=== PATIENT | female | born 1945 | race Caucasian/White ===

== ENCOUNTER 2019-10-16 10:33 | Inpatient (IN) | payer MEDICARE, OTHER ==
[~2019-10-16] VITALS: Ht 165.1 cm; Wt 120.0 kg
[2019-10-16 11:26] LABS: Basophils # (auto) 0 uL; Basophils % (auto) 0.1 % (0.0-2.0); Eosinophils # (auto) 0.1 uL; Eosinophils % (auto) 0.9 % (0.0-7.0); Hematocrit 32.2 % (36.0-46.0); Hemoglobin 10.3 g/dL (12.2-16.2); Lymphocytes # (auto) 1.4 uL; Lymphocytes % (auto) 17.6 % (10.0-50.0); Mean Corpuscular Hemoglobin 30.6 pg (28.0-32.0); Mean Corpuscular Hgb Conc. 31.9 g/dL (32.0-36.0); Mean Corpuscular Volume 95.9 fL (80.0-100.0); Monocytes # (auto) 0.6 uL; Monocytes % (auto) 7.5 % (0.0-12.0); Neutrophils % (auto) 73.9 % (37.0-80.0); Platelet Count (auto) 270 10^3/uL (140-450); Red Blood Cells 3.36 10^6/uL (4.0-5.20); Red Cell Distribution Width 15.2 % (11.8-14.3); White Blood Cell 8.1 10^3/uL (4.4-10.8)
[2019-10-16 11:37] LABS: Albumin 2.9 g/dL (3.4-5.0); Anion Gap 8 (5-15); Blood Urea Nitrogen 27 mg/dL (7-18); Calcium 9.1 mg/dL (8.5-10.1); Carbon Dioxide 35 mmol/L (21-32); Chloride 95 mmol/L (98-107); Glucose 274 mg/dL (74-106); Potassium 3.8 mmol/L (3.5-5.1); Sodium 138 mmol/L (136-145)
[2019-10-16 11:40] LABS: Lactic Acid w/Reflex 4.6 mmol/L (0.4-2.0)
[2019-10-16 11:42] LABS: Alanine Aminotransferase 17 U/L (13-56); Alkaline Phosphatase 73 U/L (45-117); Aspartate Aminotransferase 14 U/L (15-37); BUN/Creatinine Ratio 20.9; Bilirubin, Total 0.3 mg/dL (0.2-1.0); GFR African American 52 mL/min; GFR Non-African American 43 mL/min; Total Protein 7.8 g/dL (6.4-8.2)
[2019-10-16 11:45] LABS: INR 1.01 (0.9-1.15); Partial Thromboplastin Time 24.7 sec (23.64-32.05)
[2019-10-16] MEDS ORDERED: ONDANSETRON HCL 4 MG/2 ML VIAL IV PRN (15:30)
[2019-10-16] MEDS ORDERED: NITROGLYCERIN 0.4 MG SL TAB SL PRN (15:30)
[2019-10-16] MEDS ORDERED: MORPHINE SULF INJ 2 MG/ML SYRINGE 1ML IV PRN (15:30)
[2019-10-16] MEDS ORDERED: DEXTROSE (50%) 50ML SYRG IV PRN (15:30)
[2019-10-16] MEDS ORDERED: DOCUSATE SOD 100 MG CAP PO PRN (15:30)
[2019-10-16] MEDS ORDERED: cefTRIAXone 1GM/50ML D5W 50 ML IV ONE (15:30)
[2019-10-16] MEDS ORDERED: SODIUM CHLORIDE 0.9% 1,000 ML IV ONE (15:30)
[2019-10-16] MEDS ORDERED: HYDROcodone-ACET 5/325MG TAB PO PRN (15:30)
[2019-10-16] MEDS ORDERED: ENALAPRILAT 1.25 MG/ML-1ML VIAL IV PRN (15:30)
[2019-10-16 15:47] LABS: Cholesterol 120 mg/dL (< 200); Triglycerides 235 mg/dL (< 150)
[2019-10-16 15:49] LABS: HDL Cholesterol 43 mg/dL (40-59); LDL Cholesterol 61 mg/dL (< 100)
[2019-10-16 16:25] LABS: Urine Bacteria MANY /hpf (None Seen); Urine Blood Negative /uL (Negative); Urine Hyaline Cast FEW /lpf (0 - 2); Urine Specific Gravity 1.009 (1.001-1.035); Urine WBC 44 /hpf (0 - 5)
[2019-10-16 16:32] VITALS: BP 122/57
[2019-10-16] MEDS: ACCU-CHEK COMFORT CURVE STRIP VI SCH ×2 (17:13→22:25)
[2019-10-16] MEDS: InsuLIN REG 1unit/0.01ml Soln (100units/ml) SC SCH ×2 (17:14→22:24)
[2019-10-16] MEDS: IPRATROPIUM BROM 0.5 MG/2.5ML INH SOL NEB PRN (19:30)
[2019-10-16] MEDS: ALBUTEROL SULF 2.5 MG/0.5ML(0.5%) NEB SOLN NEB PRN (19:30)
[2019-10-16 22:00] VITALS: BP 116/69
[2019-10-16] MEDS: CLINDAMYCIN 300MG IV 50 ML IV SCH (22:09)
[2019-10-16] MEDS: NYSTATIN TOPICAL POWDER 15GM TOP SCH (22:25)
[2019-10-17 05:00] VITALS: BP 135/65
[2019-10-17 06:09] LABS: Albumin 2.4 g/dL (3.4-5.0); Potassium 3.8 mmol/L (3.5-5.1)
[2019-10-17 06:14] LABS: BUN/Creatinine Ratio 22.3; Bilirubin, Total 0.3 mg/dL (0.2-1.0); Total Protein 6.8 g/dL (6.4-8.2)
[2019-10-17] MEDS: ACCU-CHEK COMFORT CURVE STRIP VI SCH ×4 (06:31→22:05)
[2019-10-17] MEDS: CLINDAMYCIN 300MG IV 50 ML IV SCH ×3 (06:31→22:05)
[2019-10-17] MEDS: InsuLIN REG 1unit/0.01ml Soln (100units/ml) SC SCH ×4 (06:32→22:06)
[2019-10-17 09:00] VITALS: BP 129/54
[2019-10-17] MEDS ORDERED: cefTRIAXone 1GM/50ML D5W 50 ML IV SCH (09:00)
[2019-10-17] MEDS: ENOXAPARIN SOD 40 MG/0.4 ML SYRINGE SC SCH (10:28)
[2019-10-17] MEDS: FAMOTIDINE 20 MG TAB PO SCH (10:29)
[2019-10-17] MEDS: NYSTATIN TOPICAL POWDER 15GM TOP SCH ×2 (10:29→22:05)
[2019-10-17] MEDS: ACETAMINOPHEN 500 MG TAB PO PRN ×2 (10:39→22:31)
[2019-10-17 13:00] VITALS: BP 140/83
[2019-10-17 17:00] VITALS: BP 142/84
[2019-10-17] MEDS: BUMETANIDE 1 MG TAB PO SCH (17:46)
[2019-10-17] MEDS: IPRATROPIUM BROM 0.5 MG/2.5ML INH SOL NEB PRN (19:38)
[2019-10-17] MEDS: ALBUTEROL SULF 2.5 MG/0.5ML(0.5%) NEB SOLN NEB PRN (19:38)
[2019-10-17 21:22] VITALS: BP 139/71
[2019-10-17] MEDS: INSULIN LANTUS (GLARGINE) 1 /0.01ml (100units/ml) SC SCH (22:06)
[2019-10-18 05:03] VITALS: BP 135/87
[2019-10-18] MEDS: CLINDAMYCIN 300MG IV 50 ML IV SCH (06:16)
[2019-10-18] MEDS: ACCU-CHEK COMFORT CURVE STRIP VI SCH ×4 (06:17→21:39)
[2019-10-18] MEDS: BUMETANIDE 1 MG TAB PO SCH (06:17)
[2019-10-18] MEDS: InsuLIN REG 1unit/0.01ml Soln (100units/ml) SC SCH ×4 (06:24→22:00)
[2019-10-18] MEDS ORDERED: ANAS1TAB7 PO (06:58)
[2019-10-18] MEDS ORDERED: METF-370 PO (06:58)
[2019-10-18] MEDS ORDERED: ALLO100T PO (06:58)
[2019-10-18] MEDS ORDERED: INSUINJ37 SC (06:58)
[2019-10-18] MEDS ORDERED: ATEN50TA PO (06:58)
[2019-10-18] MEDS ORDERED: POTA10TA79 PO (06:58)
[2019-10-18] MEDS ORDERED: LOSA-39 PO (06:58)
[2019-10-18] MEDS ORDERED: GLIP10TA9 PO (06:58)
[2019-10-18] MEDS ORDERED: BUME1TAB26 PO (06:58)
[2019-10-18] MEDS ORDERED: ATOR10TA52 PO (06:58)
[2019-10-18] MEDS ORDERED: GABA100C9 PO (06:58)
[2019-10-18] MEDS: IPRATROPIUM BROM 0.5 MG/2.5ML INH SOL NEB PRN (07:22)
[2019-10-18] MEDS: ALBUTEROL SULF 2.5 MG/0.5ML(0.5%) NEB SOLN NEB PRN (07:22)
[2019-10-18 09:00] VITALS: BP 140/79
[2019-10-18] MEDS: FAMOTIDINE 20 MG TAB PO SCH (10:29)
[2019-10-18] MEDS: ENOXAPARIN SOD 40 MG/0.4 ML SYRINGE SC SCH (10:29)
[2019-10-18] MEDS: NYSTATIN TOPICAL POWDER 15GM TOP SCH ×2 (10:42→21:39)
[2019-10-18] MEDS ORDERED: VANCOMYCIN PER PHARMACY 0 MG IV SCH (10:45)
[2019-10-18 10:55] LABS: Potassium 3.8 mmol/L (3.5-5.1)
[2019-10-18 10:59] LABS: BUN/Creatinine Ratio 14.2; Calcium 8.9 mg/dL (8.5-10.1)
[2019-10-18] MEDS ORDERED: VANCOMYCIN 1GM/250ML 250 ML IV SCH (12:00)
[2019-10-18] MEDS ORDERED: PIPERACILLIN-TAZO 4.5GM 100 ML IV SCH (14:00)
[2019-10-18] MEDS: VANCOMYCIN 1GM/250ML 250 ML IV SCH (14:37)
[2019-10-18 17:00] VITALS: BP 147/100
[2019-10-18] MEDS: PIPERACILLIN-TAZO 4.5GM 100 ML IV SCH (17:21)
[2019-10-18] MEDS: metFORMIN HYDROCHLORIDE 500 MG TAB PO SCH (17:27)
[2019-10-18] MEDS: glipiZIDE 5 MG TAB PO SCH (17:27)
[2019-10-18] MEDS: POTASSIUM CHL 20 Meq TABLET PO SCH (21:38)
[2019-10-18 22:00] VITALS: BP 150/63
[2019-10-18] MEDS: INSULIN LANTUS (GLARGINE) 1 /0.01ml (100units/ml) SC SCH (22:00)
[2019-10-18] MEDS: ACETAMINOPHEN 500 MG TAB PO PRN (23:16)
[2019-10-19] MEDS: PIPERACILLIN-TAZO 4.5GM 100 ML IV SCH ×3 (01:00→16:59)
[2019-10-19 04:50] VITALS: BP 136/94
[2019-10-19 05:13] VITALS: BP 136/73
[2019-10-19] MEDS ORDERED: LABETALOL HCL 5 MG/ML 4ML SYRINGE IV ONE (05:15)
[2019-10-19] MEDS ORDERED: AMIODARONE HCL 150 MG in D5W 5% 100 ML IV ONE (05:45)
[2019-10-19 05:53] LABS: Basophils # (auto) 0.1 uL; Basophils % (auto) 0.8 % (0.0-2.0); Eosinophils # (auto) 0.2 uL; Eosinophils % (auto) 2.8 % (0.0-7.0); Hematocrit 30.4 % (36.0-46.0); Lymphocytes # (auto) 1.8 uL; Lymphocytes % (auto) 20.9 % (10.0-50.0); Mean Corpuscular Hemoglobin 31.5 pg (28.0-32.0); Mean Corpuscular Volume 95.4 fL (80.0-100.0); Monocytes # (auto) 0.7 uL; Monocytes % (auto) 7.5 % (0.0-12.0); Nucleated Red Blood Cells % 0.2 %; Platelet Count (auto) 256 10^3/uL (140-450); Red Blood Cells 3.19 10^6/uL (4.0-5.20); Red Cell Distribution Width 15.2 % (11.8-14.3); White Blood Cell 8.8 10^3/uL (4.4-10.8)
[2019-10-19] MEDS ORDERED: AMIODARONE HCL 900 MG in DEXTROSE 500 ML IV SCH ×2 (05:55→11:55)
[2019-10-19] MEDS: VANCOMYCIN 1GM/250ML 250 ML IV SCH ×2 (05:58→23:03)
[2019-10-19] MEDS: glipiZIDE 5 MG TAB PO SCH ×2 (05:58→17:40)
[2019-10-19] MEDS: InsuLIN REG 1unit/0.01ml Soln (100units/ml) SC SCH ×4 (05:59→22:58)
[2019-10-19] MEDS: ACCU-CHEK COMFORT CURVE STRIP VI SCH ×4 (05:59→22:57)
[2019-10-19] MEDS ORDERED: AMIODARONE HCL (50 MG/ ML) 3 ML VIAL IV ONE (06:02)
[2019-10-19] MEDS: ALBUTEROL SULF 2.5 MG/0.5ML(0.5%) NEB SOLN NEB PRN (06:05)
[2019-10-19] MEDS: IPRATROPIUM BROM 0.5 MG/2.5ML INH SOL NEB PRN (06:05)
[2019-10-19 06:14] LABS: Chloride 98 mmol/L (98-107); Sodium 138 mmol/L (136-145)
[2019-10-19 06:22] LABS: Alanine Aminotransferase 19 U/L (13-56); Albumin 2.6 g/dL (3.4-5.0); Alkaline Phosphatase 58 U/L (45-117); Anion Gap 5 (5-15); Aspartate Aminotransferase 27 U/L (15-37); BUN/Creatinine Ratio 13.6; Bilirubin, Total 0.3 mg/dL (0.2-1.0); Blood Urea Nitrogen 15 mg/dL (7-18); Calcium 8.7 mg/dL (8.5-10.1); Carbon Dioxide 35 mmol/L (21-32); GFR African American 63 mL/min; GFR Non-African American 52 mL/min; Glucose 197 mg/dL (74-106); Magnesium 1.9 mg/dL (1.6-2.6); Total Protein 7.6 g/dL (6.4-8.2)
[2019-10-19] MEDS: metFORMIN HYDROCHLORIDE 500 MG TAB PO SCH ×2 (07:44→17:41)
[2019-10-19 08:24] VITALS: BP 124/59
[2019-10-19] MEDS: FAMOTIDINE 20 MG TAB PO SCH (09:53)
[2019-10-19] MEDS: POTASSIUM CHL 20 Meq TABLET PO SCH ×2 (09:53→22:57)
[2019-10-19] MEDS: BUMETANIDE 2.5mg/10ml (0.25 mg/ml) INJ IV SCH (09:56)
[2019-10-19] MEDS: ATENOLOL 50 MG TAB PO SCH (10:00)
[2019-10-19] MEDS: ENOXAPARIN SOD 120 MG/0.8 ML SYRINGE SC SCH ×2 (10:00→22:57)
[2019-10-19 11:55] VITALS: BP 103/53
[2019-10-19] MEDS: NYSTATIN TOPICAL POWDER 15GM TOP SCH ×2 (16:10→22:57)
[2019-10-19 20:00] VITALS: BP 142/62
[2019-10-19 22:57] VITALS: BP 142/62
[2019-10-19] MEDS: INSULIN LANTUS (GLARGINE) 1 /0.01ml (100units/ml) SC SCH (22:58)
[2019-10-20] VITALS: BP 144/57
[2019-10-20] MEDS: PIPERACILLIN-TAZO 4.5GM 100 ML IV SCH ×3 (01:13→17:10)
[2019-10-20 04:00] VITALS: BP 143/68
[2019-10-20 05:49] LABS: Basophils # (auto) 0 uL; Basophils % (auto) 0.3 % (0.0-2.0); Eosinophils # (auto) 0.3 uL; Eosinophils % (auto) 3.8 % (0.0-7.0); Hematocrit 28.1 % (36.0-46.0); Hemoglobin 9.3 g/dL (12.2-16.2); Lymphocytes # (auto) 1.5 uL; Lymphocytes % (auto) 20.5 % (10.0-50.0); Mean Corpuscular Hemoglobin 31.8 pg (28.0-32.0); Mean Corpuscular Hgb Conc. 33.2 g/dL (32.0-36.0); Mean Corpuscular Volume 95.9 fL (80.0-100.0); Monocytes # (auto) 0.5 uL; Monocytes % (auto) 7.6 % (0.0-12.0); Neutrophils # (auto) 4.8 uL; Neutrophils % (auto) 67.8 % (37.0-80.0); Platelet Count (auto) 244 10^3/uL (140-450); Red Blood Cells 2.93 10^6/uL (4.0-5.20); Red Cell Distribution Width 15.1 % (11.8-14.3); White Blood Cell 7.1 10^3/uL (4.4-10.8)
[2019-10-20 06:06] LABS: Albumin 2.5 g/dL (3.4-5.0); BUN/Creatinine Ratio 13.4; Calcium 8.3 mg/dL (8.5-10.1); Potassium 3.7 mmol/L (3.5-5.1)
[2019-10-20] MEDS: ACCU-CHEK COMFORT CURVE STRIP VI SCH ×4 (06:07→21:10)
[2019-10-20 06:08] LABS: Bilirubin, Total 0.3 mg/dL (0.2-1.0); Total Protein 7.1 g/dL (6.4-8.2)
[2019-10-20] MEDS: glipiZIDE 5 MG TAB PO SCH (06:08)
[2019-10-20] MEDS: InsuLIN REG 1unit/0.01ml Soln (100units/ml) SC SCH ×4 (06:08→21:10)
[2019-10-20 07:40] VITALS: BP 120/64
[2019-10-20] MEDS ORDERED: DEXTROSE (50%) 50ML SYRG IV PRN (08:45)
[2019-10-20] MEDS: NYSTATIN TOPICAL POWDER 15GM TOP SCH ×3 (10:00→21:09)
[2019-10-20] MEDS: ATENOLOL 50 MG TAB PO SCH (10:00)
[2019-10-20] MEDS: BUMETANIDE 2.5mg/10ml (0.25 mg/ml) INJ IV SCH (10:29)
[2019-10-20] MEDS: POTASSIUM CHL 20 Meq TABLET PO SCH ×2 (10:29→21:09)
[2019-10-20] MEDS: FAMOTIDINE 20 MG TAB PO SCH (10:29)
[2019-10-20] MEDS: ENOXAPARIN SOD 120 MG/0.8 ML SYRINGE SC SCH ×2 (10:30→21:10)
[2019-10-20 11:50] VITALS: BP 107/85
[2019-10-20 15:35] VITALS: BP 118/72
[2019-10-20] MEDS: VANCOMYCIN 1GM/250ML 250 ML IV SCH (15:46)
[2019-10-20] MEDS ORDERED: ATENOLOL 50 MG TAB PO SCH (16:45)
[2019-10-20] MEDS: ALLOPURINOL 100 MG TAB PO SCH (17:05)
[2019-10-20] MEDS: GABAPENTIN 100 MG CAP PO SCH ×2 (17:05→21:09)
[2019-10-20 20:00] VITALS: BP 127/64
[2019-10-20] MEDS: ATORVASTATIN 20 MG TAB PO SCH (21:09)
[2019-10-20] MEDS: INSULIN LANTUS (GLARGINE) 1 /0.01ml (100units/ml) SC SCH (21:10)
[2019-10-21] VITALS: BP 138/70
[2019-10-21] MEDS: PIPERACILLIN-TAZO 4.5GM 100 ML IV SCH ×3 (01:29→17:35)
[2019-10-21 05:00] VITALS: BP 155/76
[2019-10-21] MEDS: GABAPENTIN 100 MG CAP PO SCH ×3 (06:00→21:18)
[2019-10-21] MEDS: InsuLIN REG 1unit/0.01ml Soln (100units/ml) SC SCH ×4 (06:57→21:20)
[2019-10-21] MEDS: ACCU-CHEK COMFORT CURVE STRIP VI SCH ×4 (07:09→21:18)
[2019-10-21] MEDS: VANCOMYCIN 1GM/250ML 250 ML IV SCH ×2 (07:09→23:02)
[2019-10-21 07:58] LABS: Basophils # (auto) 0.1 uL; Basophils % (auto) 0.8 % (0.0-2.0); Eosinophils # (auto) 0.3 uL; Eosinophils % (auto) 4.9 % (0.0-7.0); Hematocrit 28.5 % (36.0-46.0); Hemoglobin 9.3 g/dL (12.2-16.2); Lymphocytes # (auto) 1.3 uL; Lymphocytes % (auto) 21.2 % (10.0-50.0); Mean Corpuscular Hemoglobin 31.5 pg (28.0-32.0); Mean Corpuscular Hgb Conc. 32.6 g/dL (32.0-36.0); Mean Corpuscular Volume 96.6 fL (80.0-100.0); Monocytes # (auto) 0.5 uL; Monocytes % (auto) 8.4 % (0.0-12.0); Neutrophils % (auto) 64.7 % (37.0-80.0); Nucleated Red Blood Cells % 0.1 %; Platelet Count (auto) 248 10^3/uL (140-450); Red Blood Cells 2.95 10^6/uL (4.0-5.20); Red Cell Distribution Width 15.3 % (11.8-14.3); White Blood Cell 6.2 10^3/uL (4.4-10.8)
[2019-10-21 08:31] LABS: Albumin 2.4 g/dL (3.4-5.0); Calcium 8.1 mg/dL (8.5-10.1); Potassium 4.2 mmol/L (3.5-5.1)
[2019-10-21 08:34] LABS: Bilirubin, Total 0.3 mg/dL (0.2-1.0); Total Protein 7.1 g/dL (6.4-8.2)
[2019-10-21] MEDS: NYSTATIN TOPICAL POWDER 15GM TOP SCH ×2 (09:43→21:19)
[2019-10-21] MEDS: POTASSIUM CHL 20 Meq TABLET PO SCH ×2 (09:44→21:18)
[2019-10-21] MEDS: FAMOTIDINE 20 MG TAB PO SCH (09:44)
[2019-10-21] MEDS: BUMETANIDE 2.5mg/10ml (0.25 mg/ml) INJ IV SCH (09:44)
[2019-10-21] MEDS: ALLOPURINOL 100 MG TAB PO SCH (09:44)
[2019-10-21] MEDS: ENOXAPARIN SOD 120 MG/0.8 ML SYRINGE SC SCH ×2 (09:44→21:18)
[2019-10-21 09:45] VITALS: BP 147/70
[2019-10-21] MEDS: ATENOLOL 50 MG TAB PO SCH (09:45)
[2019-10-21 13:02] VITALS: BP 149/50
[2019-10-21 17:00] VITALS: BP 155/65
[2019-10-21 21:00] VITALS: BP 145/63
[2019-10-21] MEDS: ATORVASTATIN 20 MG TAB PO SCH (21:18)
[2019-10-21] MEDS: INSULIN LANTUS (GLARGINE) 1 /0.01ml (100units/ml) SC SCH (21:19)
[2019-10-22] MEDS ORDERED: PIPERACILLIN-TAZO 4.5GM 100 ML IV ONE (01:05)
[2019-10-22] MEDS: PIPERACILLIN-TAZO 4.5GM 100 ML IV SCH ×3 (01:09→17:44)
[2019-10-22 04:30] VITALS: BP 139/69
[2019-10-22] MEDS: GABAPENTIN 100 MG CAP PO SCH ×3 (05:31→21:31)
[2019-10-22] MEDS: InsuLIN REG 1unit/0.01ml Soln (100units/ml) SC SCH ×4 (06:30→21:34)
[2019-10-22] MEDS: ACCU-CHEK COMFORT CURVE STRIP VI SCH ×4 (06:30→21:35)
[2019-10-22 08:24] VITALS: BP 106/67
[2019-10-22 08:45] LABS: BUN/Creatinine Ratio 10.9; Calcium 8.8 mg/dL (8.5-10.1); Potassium 4.8 mmol/L (3.5-5.1)
[2019-10-22] MEDS: FAMOTIDINE 20 MG TAB PO SCH (09:25)
[2019-10-22] MEDS: BUMETANIDE 2.5mg/10ml (0.25 mg/ml) INJ IV SCH (09:25)
[2019-10-22] MEDS: ATENOLOL 50 MG TAB PO SCH (09:25)
[2019-10-22] MEDS: ALLOPURINOL 100 MG TAB PO SCH (09:25)
[2019-10-22] MEDS: POTASSIUM CHL 20 Meq TABLET PO SCH ×2 (09:25→21:31)
[2019-10-22] MEDS: NYSTATIN TOPICAL POWDER 15GM TOP SCH ×2 (09:26→21:42)
[2019-10-22] MEDS: ENOXAPARIN SOD 120 MG/0.8 ML SYRINGE SC SCH (09:26)
[2019-10-22] MEDS: INSULIN LANTUS (GLARGINE) 1 /0.01ml (100units/ml) SC SCH ×2 (11:55→21:35)
[2019-10-22 13:00] VITALS: BP 147/69
[2019-10-22] MEDS: VANCOMYCIN 1GM/250ML 250 ML IV SCH (14:50)
[2019-10-22 17:24] VITALS: BP 125/55
[2019-10-22 21:00] VITALS: BP 130/69
[2019-10-22] MEDS: ATORVASTATIN 20 MG TAB PO SCH (21:31)
[2019-10-23] MEDS: PIPERACILLIN-TAZO 4.5GM 100 ML IV SCH ×3 (00:51→17:58)
[2019-10-23 05:00] VITALS: BP 143/82
[2019-10-23 06:01] LABS: Calcium 9.1 mg/dL (8.5-10.1); Potassium 4.2 mmol/L (3.5-5.1)
[2019-10-23 06:04] LABS: BUN/Creatinine Ratio 10.7
[2019-10-23] MEDS: VANCOMYCIN 1GM/250ML 250 ML IV SCH ×2 (06:17→14:25)
[2019-10-23] MEDS: InsuLIN REG 1unit/0.01ml Soln (100units/ml) SC SCH ×4 (06:31→22:02)
[2019-10-23] MEDS: ACCU-CHEK COMFORT CURVE STRIP VI SCH ×4 (06:31→21:54)
[2019-10-23] MEDS: GABAPENTIN 100 MG CAP PO SCH ×3 (06:31→21:54)
[2019-10-23] MEDS ORDERED: LIDOCAINE 2%HCL (LOCAL ANESTH.) INJ 20ML MDV ONE (08:59)
[2019-10-23] MEDS ORDERED: IODIXANOL 320MG/ML 100ML BTL IV ONE (08:59)
[2019-10-23] MEDS ORDERED: ANGIOMAX 250 MG VIAL IV ONE (09:13)
[2019-10-23] MEDS ORDERED: MIDAZOLAM HCL 1MG/1ML-2 ML VIAL ONE (09:14)
[2019-10-23] MEDS ORDERED: VERAPAMIL 2.5MG/ML INJ 2ML VIAL IV ONE (09:14)
[2019-10-23] MEDS ORDERED: fentaNYL CITRATE 100 MCG/2 ML VL ONE (09:14)
[2019-10-23] MEDS ORDERED: SODIUM CHL 0.9% 0 ML ONE (09:14)
[2019-10-23] MEDS ORDERED: HEPARIN SODIUM (PORCINE) 5000 UNITS/ML 1ML VIAL ONE (09:49)
[2019-10-23] MEDS: ATENOLOL 50 MG TAB PO SCH (10:00)
[2019-10-23] MEDS: BUMETANIDE 2.5mg/10ml (0.25 mg/ml) INJ IV SCH (11:10)
[2019-10-23] MEDS: POTASSIUM CHL 20 Meq TABLET PO SCH ×2 (11:11→21:54)
[2019-10-23] MEDS: FAMOTIDINE 20 MG TAB PO SCH (11:13)
[2019-10-23] MEDS: ALLOPURINOL 100 MG TAB PO SCH (11:13)
[2019-10-23] MEDS: NYSTATIN TOPICAL POWDER 15GM TOP SCH ×2 (11:14→21:56)
[2019-10-23 13:00] VITALS: BP 136/52
[2019-10-23 17:02] VITALS: BP 150/70
[2019-10-23] MEDS: ATORVASTATIN 20 MG TAB PO SCH (21:54)
[2019-10-23 22:00] VITALS: BP 138/67
[2019-10-23] MEDS: INSULIN LANTUS (GLARGINE) 1 /0.01ml (100units/ml) SC SCH (22:02)
[2019-10-24] MEDS: PIPERACILLIN-TAZO 4.5GM 100 ML IV SCH ×2 (01:46→11:09)
[2019-10-24 05:00] VITALS: BP 151/67
[2019-10-24 05:44] LABS: Basophils # (auto) 0 uL; Basophils % (auto) 0.4 % (0.0-2.0); Eosinophils # (auto) 0.2 uL; Hematocrit 28.1 % (36.0-46.0); Hemoglobin 9.2 g/dL (12.2-16.2); Lymphocytes # (auto) 1.1 uL; Lymphocytes % (auto) 18.1 % (10.0-50.0); Mean Corpuscular Hemoglobin 31.9 pg (28.0-32.0); Mean Corpuscular Hgb Conc. 32.5 g/dL (32.0-36.0); Mean Corpuscular Volume 98.1 fL (80.0-100.0); Monocytes # (auto) 0.7 uL; Monocytes % (auto) 10.6 % (0.0-12.0); Neutrophils # (auto) 4.2 uL; Neutrophils % (auto) 67.9 % (37.0-80.0); Platelet Count (auto) 248 10^3/uL (140-450); Red Blood Cells 2.87 10^6/uL (4.0-5.20); Red Cell Distribution Width 15.4 % (11.8-14.3); White Blood Cell 6.2 10^3/uL (4.4-10.8)
[2019-10-24 06:06] LABS: Potassium 4.4 mmol/L (3.5-5.1)
[2019-10-24 06:18] LABS: Albumin 2.5 g/dL (3.4-5.0); BUN/Creatinine Ratio 11.9; Bilirubin, Total 0.2 mg/dL (0.2-1.0); Calcium 8.9 mg/dL (8.5-10.1)
[2019-10-24] MEDS: GABAPENTIN 100 MG CAP PO SCH ×2 (06:20→14:00)
[2019-10-24] MEDS: InsuLIN REG 1unit/0.01ml Soln (100units/ml) SC SCH ×2 (06:27→11:37)
[2019-10-24] MEDS: ACCU-CHEK COMFORT CURVE STRIP VI SCH ×2 (06:27→11:37)
[2019-10-24] MEDS: VANCOMYCIN 1GM/250ML 250 ML IV SCH (08:48)
[2019-10-24 09:00] VITALS: BP 154/74
[2019-10-24] MEDS: NYSTATIN TOPICAL POWDER 15GM TOP SCH (10:00)
[2019-10-24 11:09] VITALS: BP 128/65
[2019-10-24] MEDS: BUMETANIDE 2.5mg/10ml (0.25 mg/ml) INJ IV SCH (11:10)
[2019-10-24] MEDS: ALLOPURINOL 100 MG TAB PO SCH (11:12)
[2019-10-24] MEDS: ATENOLOL 50 MG TAB PO SCH (11:12)
[2019-10-24] MEDS: POTASSIUM CHL 20 Meq TABLET PO SCH (11:13)
[2019-10-24] MEDS: FAMOTIDINE 20 MG TAB PO SCH (11:13)
[2019-10-24 13:00] VITALS: BP 135/63
== END 2019-10-24 15:53 | disposition home or self-care (01) | DRG 602 ==
LOC: ER 10:33 → EDBD 10:33 → OVERFLOW 10:34 → WEST WING 18:04 → DOU IN ICU 10-19 08:44 → TELE-EAST 10-21 03:29
PROVIDERS: ADMIT Nurse Practitioner Acute Care; ATTEND Internal Medicine
PROC: B41GYZZ Fluoroscopy of Left Lower Extremity Arteries using Other Contrast (ICD-10-PCS; principal; 2019-10-23)
PROC: B41FYZZ Fluoroscopy of Right Lower Extremity Arteries using Other Contrast (ICD-10-PCS; 2019-10-23)
DX: L03.115 Cellulitis of right lower limb (principal); J96.21 Acute and chronic respiratory failure with hypoxia; N17.0 Acute kidney failure with tubular necrosis; E43 Unspecified severe protein-calorie malnutrition; E87.2 Acidosis; N39.0 Urinary tract infection, site not specified; I13.0 Hypertensive heart and chronic kidney disease with heart failure and stage 1 through stage 4 chronic kidney disease, or unspecified chronic kidney disease; Z68.41 Body mass index [BMI] 40.0-44.9, adult; I50.32 Chronic diastolic (congestive) heart failure; L03.116 Cellulitis of left lower limb; N18.3 Chronic kidney disease, stage 3 (moderate); L25.9 Unspecified contact dermatitis, unspecified cause; Z99.81 Dependence on supplemental oxygen; D63.8 Anemia in other chronic diseases classified elsewhere; I73.9 Peripheral vascular disease, unspecified; I48.91 Unspecified atrial fibrillation; E66.01 Morbid (severe) obesity due to excess calories; I48.0 Paroxysmal atrial fibrillation; I50.9 Heart failure, unspecified; E78.5 Hyperlipidemia, unspecified; E11.22 Type 2 diabetes mellitus with diabetic chronic kidney disease; E11.51 Type 2 diabetes mellitus with diabetic peripheral angiopathy without gangrene; J44.9 Chronic obstructive pulmonary disease, unspecified; Z79.01 Long term (current) use of anticoagulants; Z91.11 Patient's noncompliance with dietary regimen; Z85.3 Personal history of malignant neoplasm of breast; Z90.49 Acquired absence of other specified parts of digestive tract; Z90.13 Acquired absence of bilateral breasts and nipples
CPT/HCPCS: 36415; 71045; 75716; 80048; 80053; 80061; 80202; 81001; 82962; 83036; 83605; 83735; 83880; 84484; 85025; 85610; 85730; 86850; 86900; 86901; 87040; 87077; 87186; 87205; 93005; 93306; 93926; 93970; 94640; 99152; 99153; G0378; J0696; J1815; J2250; J2543; J3490; J7060; Q9967